=== PATIENT | female | born 1990 | race American Indian/Alaskan Native ===

== ENCOUNTER 2018-02-28 20:42 | Emergency (ER) | payer SELFPAY ==
[~2018-02-28] VITALS: Ht 172.7 cm; Wt 78.9 kg
[2018-02-28 21:16] LABS: Basophils # (auto) 0 uL; Basophils % (auto) 0.7 % (0.0-2.0); Eosinophils # (auto) 0.3 uL; Eosinophils % (auto) 3.8 % (0.0-7.0); Hematocrit 35.9 % (36.0-46.0); Hemoglobin 11.7 g/dL (12.2-16.2); Lymphocytes # (auto) 2.5 uL; Lymphocytes % (auto) 36.2 % (10.0-50.0); Mean Corpuscular Hemoglobin 25.6 pg (28.0-32.0); Mean Corpuscular Hgb Conc. 32.6 g/dL (32.0-36.0); Mean Corpuscular Volume 78.5 fL (80.0-100.0); Monocytes # (auto) 0.5 uL; Monocytes % (auto) 7.2 % (0.0-12.0); Neutrophils # (auto) 3.6 uL; Neutrophils % (auto) 52.1 % (37.0-80.0); Nucleated Red Blood Cells % 0.2 %; Platelet Count (auto) 406 10^3/uL (140-450); Red Blood Cells 4.58 10^6/uL (4.0-5.20); Red Cell Distribution Width 18.4 % (11.8-14.3)
[2018-02-28 21:38] LABS: Albumin 3.2 g/dL (3.4-5.0); BUN/Creatinine Ratio 14.9; Calcium 8.3 mg/dL (8.5-10.1); Potassium 4.3 mmol/L (3.5-5.1)
[2018-02-28 21:41] LABS: Bilirubin, Total 0.3 mg/dL (0.2-1.0); Total Protein 7.1 g/dL (6.4-8.2)
[2018-02-28 22:40] LABS: Urine Bacteria NONE SEEN /hpf (None Seen); Urine Blood 1+ /uL (Negative); Urine Mucus FEW (None Seen); Urine Specific Gravity 1.034 (1.001-1.035); Urine WBC 3 /hpf (0 - 5)
[2018-03-01] MEDS ORDERED: MORPHINE SULFATE 8mg/ml INJ SDV IM ONE (00:30)
[2018-03-01] MEDS ORDERED: SODIUM CHLORIDE 0.9% 1,000 ML IV ONE (01:45)
[2018-03-01] MEDS ORDERED: NALBUPHINE HCL 10 MG/1ml INJECTION IV ONE (01:45)
[2018-03-01 02:13] LABS: Amylase 59 U/L (25-115); Lipase 177 U/L (73-393)
[2018-03-01 03:08] VITALS: BP 120/85
== END 2018-03-01 04:01 | disposition home or self-care (01) ==
LOC: ER 20:42
DX: O99.611 Diseases of the digestive system complicating pregnancy, first trimester (principal); K29.00 Acute gastritis without bleeding
CPT/HCPCS: 36415; 74176; 80053; 81001; 82150; 83690; 84702; 85025; 96361; 96372; 96374; 99285; J2270; J2300; J7030